=== PATIENT | female | born 1970 | race Caucasian/White ===

== ENCOUNTER 2021-12-23 21:48 | Emergency (ER) | payer BC, MEDICAID ==
[2021-12-23] MEDS ORDERED: Sodium Chloride 0.9% 10 ML Syringe FLUSH PRN (22:20)
[2021-12-23] MEDS ORDERED: Sodium Chloride 0.9% 1,000 ML IV ONE ×2 (22:24→23:08)
[2021-12-23 23:07] LABS: ESTIMATED GFR 60 mL/min (>60)
[2021-12-23] MEDS ORDERED: Norepinephrine 4 MG in Dextrose 5% in Water 246 ML IV SCH ×2 (23:15)
[2021-12-23 23:19] LABS: ACETAMINOPHEN 0 ug/mL (10-30)
[2021-12-24] MEDS ORDERED: Sodium Chloride 0.9% 500 ML IV ONE (00:51)
[2021-12-24] MEDS ORDERED: Sodium Chloride 0.9% 1,000 ML IV SCH (03:30)
[2021-12-24] MEDS ORDERED: Dextrose 5%-Lactated Ringers 1,000 ML IV SCH (08:15)
== END 2021-12-24 15:38 ==
LOC: JD.ED 21:48
DX: T46.5X2A Poisoning by other antihypertensive drugs, intentional self-harm, initial encounter (principal); F32.A Depression, unspecified; Z88.0 Allergy status to penicillin; Z20.822 Contact with and (suspected) exposure to COVID-19
CPT/HCPCS: 36415; 80053; 80143; 80179; 80306; 80307; 81025; 83735; 84443; 85025; 87635; 93005; 96360; 96361; 99285; J3490; J7030; J7121; U0002